=== PATIENT | male | born 1990 | race Caucasian/White ===

== ENCOUNTER 2016-09-16 09:51 | Emergency (ER) | payer OTHER ==
[~2016-09-16] VITALS: Ht 185.4 cm; Wt 74.8 kg
--- NOTE | 2016-09-16 11:39 | ED NEURO DEFICIT/STROKE ---
History of Present Illness General Chief Complaint: General Adult Stated Complaint: NAUSEA,BRUNER,PER PT"HYPERTENSION" Source: patient Exam Limitations: no limitations Vital Signs & Intake/Output Vital Signs & Intake/Output Vital Signs Date Time Temp Pulse Resp B/P Pulse O2 O2 Flow FiO2 Ox Delivery Rate 09/16 1339 97.5 69 18 127/67 95 Room Air 09/16 1120 98.0 98 18 122/73 97 Room Air Room Air 09/16 0958 98.0 81 20 122/79 96 Room Air Allergies Coded Allergies: No Known Allergies (09/16/16) Reconcile Medications No Known Home Medications Triage Note: TRIAGE: PT TO ER WITH COWORKER C/C DIFFICULTY CONCENTRATING THIS MORNING, R PERIPHERAL VISION LOSS (NOW RETURNED), B/P WAS HIGH, HR WAS LOW AND THEN DEVELOPED HEADACHE. STATES HR AND B/P RETURNED TO NORMAL AFTER THAT. VSS AT TRIAGE. REPORTS H/A AND NAUSEA PERSISTS. Triage Nurses Notes Reviewed? yes HPI: This patient is a 26-year-old male past medical history including Marfan syndrome and migraine headaches who presented to the emergency department today for evaluation of multiple complaints. The patient reported that he was writing his chart this morning when he started to develop right sided peripheral vision loss and feeling as though he was going to pass out. His blood pressure was 141 /75 mmHg and his pulse was in the 40s. He was given some water and his pulse normalized. The patient reported that after that time he developed a left-sided occipital, pounding headache which he rated at its worst an 8 out of 10. He reported that is currently resolving. He had similar symptoms approximately 4 years ago when he had a migraine headache. The patient denied any current visual changes, dizziness, chest pain, palpitations, difficulty breathing, numbness or tingling in his extremities, jaw pain, arm pain, or any other associated symptoms. (IVIS GUADALUPE,BENJAMIN) Past History Travel History Traveled to [place] past 21 day No Medical History Any Pertinent Medical History? see below for history Neurological: NONE EENT: NONE Cardiovascular: AORTIC REGURGITATION, DILATED AORTA Respiratory: NONE Gastrointestinal: NONE Hepatic: NONE Renal: NONE Musculoskeletal: mARFAN SYNDROME Psychiatric: NONE Endocrine: NONE Blood Disorders: NONE Cancer(s): NONE [employer]CTOR [employer]ERS/Reproductive: NONE Surgical History Surgical History: non-contributory Psychosocial History What is your primary language [place] Citizen Tobacco Use: Never used ETOH Use: occasional use Illicit Drug Use: denies illicit drug use Family History Hx Contributory? No (BENJAMIN LANGSTON PA-C) Review of Systems Review of Systems Constitutional: Reports: no symptoms. EENTM: Reports: see HPI. Respiratory: Reports: no symptoms. Cardiovascular: Reports: no symptoms. GI: Reports: no symptoms. Genitourinary: Reports: no symptoms. Musculoskeletal: Reports: no symptoms. Skin: Reports: no symptoms. Neurological/Psychological: Reports: see HPI. All Other Systems: Reviewed and Negative (BENJAMIN LANGSTON PA-C) Physical Exam Physical Exam General Appearance: well developed/nourished, no apparent distress, alert, awake Cranial Nerves: normal hearing, normal speech, PERRL Comments: Well-developed well-nourished person in no acute distress HEENT: Normal EENT exam, head normocephalic/atraumatic, moist mucous membranes PERRLA bilaterally. EOMI bilaterally no nystagmus Neck: Supple, no lymphadenopathy Back: Normal gait Cardiovascular: Regular rate and rhythm with no murmurs, rubs, or gallops Respiratory: Chest nontender. No respiratory distress. Breath sounds clear to auscultation bilaterally with no wheezes, rales, rhonchi Abdomen: Soft, nontender and nondistended with normoactive bowel sounds Extremity: Normal and equal pulses. Capillary refill less than 2 seconds Neuro: Alert oriented x3, cranial nerves II through XII grossly intact. No aphasia. No facial droop. No unilateral weakness Skin: No appreciable rash on exposed skin, skin is warm and dry. Psych: Mood and affect is normal Core Measures CVA/TIA Diagnosis: No Severe Sepsis Present: No Septic Shock Present: No (BENJAMIN LANGSTON PA-C) Progress Differential Diagnosis: acute glaucoma, Deng's Palsy, drug intoxication, electrolyte imbalance, encephalitis, hypoglycemia, intracranial Hem., intracranial mass/tumor, meningitis, migraine BRUNER, seizure disorder, stroke, subarachnoid Hem., vertebrobasilar insuff., acs, pe, AORTIC ANEURYSM Plan of Care: Orders Procedure Date/time Status MISTAKE 09/16 1114 Active TROPONIN LEVEL 09/16 1114 Complete LIPASE 09/16 1114 Complete DIRECT BILIRUBIN 09/16 1114 Complete COMPREHENSIVE METABOLIC PANEL 09/16 1114 Complete CBC WITHOUT DIFFERENTIAL 09/16 1114 Complete AMYLASE 09/16 1114 Complete EKG 09/16 1114 Active Laboratory Tests 09/16/16 1137: Anion Gap 6, Estimated GFR > 60, BUN/Creatinine Ratio 17.5, Glucose 109 H, Calcium 9.7, Total Bilirubin 3.1 H, Direct Bilirubin 0.1, AST 21, ALT 36, Alkaline Phosphatase 36, Troponin I < 0.01, Total Protein 7.1, Albumin 4.4, Globulin 2.7, Albumin/Globulin Ratio 1.6, Amylase 35, Lipase 72, CBC w Diff NO MAN DIFF REQ, RBC 5.68, MCV 87.2, MCH 30.2, RDW 13.3, MPV 9.1, Gran % 86.4 H, Lymphocytes % 9.0 L, Monocytes % 4.5, Eosinophils % 0.1, Basophils % 0 L, Absolute Granulocytes 10.2 H, Absolute Lymphocytes 1.1 L, Absolute Monocytes 0.5, Absolute Eosinophils 0, Absolute Basophils 0, PUBS MCHC 34.7 Diagnostic Imaging: Viewed by Me: CT Scan. Discussed w/RAD: CT Scan. Radiology Impression: PATIENT: APRIL BEAR PRESENT AGE: 26 PATIENT ACCOUNT NO: [id number] : 89 LOCATION: [facility] ORDERING PHYSICIAN: BENJAMIN LANGSTON PA-C SERVICE DATE: 09/16/16 EXAM TYPE: CAT - CT HEAD WO IV CONTRAST EXAMINATION: CT HEAD WITHOUT CONTRAST CLINICAL INFORMATION: Right-sided peripheral visual loss and headache. COMPARISON: None TECHNIQUE: Contiguous axial imaging was performed from the skull base to vertex without intravenous administration of contrast. DLP: 601 mGy-cm FINDINGS: There is no evidence of acute intracranial hemorrhage or territorial infarction. No abnormal mass effect or midline shift is seen. Thao to white matter differentiation is well preserved. No extra-axial fluid collections are identified. The ventricles are normal in size. There is no abnormal attenuation within the brain parenchyma. The osseous structures and soft tissues are normal. The mastoid air cells and visualized portions of the paranasal sinuses are well aerated. IMPRESSION: No acute intracranial pathology. DICTATED BY: AZUL HODGE MD DATE/TIME DICTATED:09/16/161319 STORE OPERATIONS ASSOCIATE:CINDY DATE/TIME TRANSCRIBED:09/16/161319 CONFIDENTIAL, DO NOT COPY WITHOUT APPROPRIATE AUTHORIZATION. <Electronically signed in Other Vendor System> SIGNED BY: AZUL HODGE MD 09/16/161327, PATIENT: APRIL BEAR PRESENT AGE: 26 PATIENT ACCOUNT NO: [id number] : 89 LOCATION: [facility] ORDERING PHYSICIAN: BENJAMIN LANGSTON PA-C SERVICE DATE: 09/16/16 EXAM TYPE: CAT - CTA CHEST-AORTIC DISSECTION EXAMINATION: CTA OF THE CHEST WITHOUT AND WITH CONTRAST CLINICAL INFORMATION: History of Marfan syndrome. Presyncope and headache. Rule out aortic rupture/dissection. COMPARISON: None TECHNIQUE: CT angiogram of the chest was performed without and with contrast. 94 mL Optiray 320 administered without complication. Maximum intensity projection imaging was produced and reviewed. FINDINGS: Bolus quality is suboptimal due to Valsalva. The thoracic aorta is normal in caliber. On the noncontrast imaging there is no evidence of intramural hematoma. On the postcontrast imaging there is no dissection flap or evidence of rupture. No pericardial effusion. No lymphadenopathy. The lungs are clear. No pleural effusion. Mild pectus excavatum. The upper abdomen appears normal. No suspicious osseous abnormalities. IMPRESSION: Mildly limited CT angiogram due to bolus quality secondary to Valsalva. Negative for thoracic aortic aneurysm/dissection. DICTATED BY: KATHY BURKS MD DATE/TIME DICTATED:09/16/161317 STORE OPERATIONS ASSOCIATE:CINDY DATE/TIME TRANSCRIBED:09/16/161317 CONFIDENTIAL, DO NOT COPY WITHOUT APPROPRIATE AUTHORIZATION. <Electronically signed in Other Vendor System> SIGNED BY: KATHY BURKS MD 09/16/161326 Initial ED EKG: normal axis, normal intervals, normal sinus rhythm, EARLY REPOLARIZATION Comments: 09/16/2016 12:37:42 PM: I discussed this patient with Dr. Rowe. Recommending getting a CT angiogram of the chest rule out aortic ruptured this patient's past medical history of Marfan syndrome with an enlarged aorta. Also recommended getting a CT of the head without contrast to rule out any intracranial pathology with this patient's presenting symptom of right-sided peripheral vision loss. Discussed this with the patient and his family who are in agreement with the plan. 09/16/2016 12:52:31 PM: Dr. Rowe is currently at the patient's bedside evaluation. This patient is not orthostatic. (IVIS GUADALUPE,BENJAMIN) Departure Departure Disposition: HOME OR SELF CARE Condition: Stable Clinical Impression Primary Impression: Migraine Qualifiers: Migraine type: unspecified Status migrainosus presence: without status migrainosus Intractability: not intractable Qualified Code: G43.909 - Migraine, unspecified, not intractable, without status migrainosus Referrals: PATIENT HAS NO PRIMARY CARE DR (PCP/Family) Additional Instructions: Please follow-up with your previously scheduled appointment for echocardiogram. Rest. Return for any worsening symptoms or concerns. Departure Forms: Customer Survey General Discharge Information Prescriptions: Current Visit Scripts No Known Home Medications (BENJAMIN LANGSTON PA-C) PA/TIMBER ROBBER Co-Sign Statement Statement: ED Attending supervision documentation- [] I saw and evaluated the patient. I have also reviewed all the pertinent lab results and diagnostic results. I agree with the findings and the plan of care as documented in the PA's/TIMBER ROBBER's documentation. [X] I have reviewed the ED Record and agree with the PA's/TIMBER ROBBER's documentation. [] Additions or exceptions (if any) to the PAs/TIMBER ROBBER's note and plan are summarized below: [] (ADITI ROWE DO
[2016-09-16 11:44] LABS: ABSOLUTE BASOPHIL COUNT 0 /CUMM (0.0-0.2); ABSOLUTE EOSINOPHIL COUNT 0 /CUMM (0.0-0.7); ABSOLUTE GRANULOCYTE CT 10.2 /CUMM (1.4-6.5); ABSOLUTE LYMPH COUNT 1.1 /CUMM (1.2-3.4); ABSOLUTE MONOCYTE COUNT 0.5 /CUMM (0.10-0.60); BASOPHIL % 0 % (0.0-2.0); EOSINOPHIL % 0.1 % (0-5); HEMATOCRIT 49.5 % (42-52); MEAN CORPUSCULAR HGB 30.2 PG (27.0-31.0); MEAN CORPUSCULAR HGB CONC 34.7 G/DL (33.0-37.0); MEAN CORPUSCULAR VOLUME 87.2 FL (80.0-94.0); MEAN PLATELET VOLUME 9.1 FL (7.4-10.4); PLATELET COUNT 156 /CUMM (130-400); RBC DISTRIBUTION WIDTH 13.3 % (11.5-14.5); RED BLOOD CELL CT 5.68 /CUMM (4.70-6.10); WHITE BLOOD CELL COUNT 11.8 /CUMM (4.8-10.8)
[2016-09-16 12:02] LABS: GRANULOCYTE % 86.4 % (42.2-75.2)
--- NOTE | 2016-09-16 13:27 | CT SCAN REPORT ---
EXAMINATION: CTA OF THE CHEST WITHOUT AND WITH CONTRAST CLINICAL INFORMATION: History of Marfan syndrome. Presyncope and headache. Rule out aortic rupture/dissection. COMPARISON: None TECHNIQUE: CT angiogram of the chest was performed without and with contrast. 94 mL Optiray 320 administered without complication. Maximum intensity projection imaging was produced and reviewed. FINDINGS: Bolus quality is suboptimal due to Valsalva. The thoracic aorta is normal in caliber. On the noncontrast imaging there is no evidence of intramural hematoma. On the postcontrast imaging there is no dissection flap or evidence of rupture. No pericardial effusion. No lymphadenopathy. The lungs are clear. No pleural effusion. Mild pectus excavatum. The upper abdomen appears normal. No suspicious osseous abnormalities. IMPRESSION: Mildly limited CT angiogram due to bolus quality secondary to Valsalva. Negative for thoracic aortic aneurysm/dissection.
--- NOTE | 2016-09-16 13:28 | CT SCAN REPORT ---
EXAMINATION: CT HEAD WITHOUT CONTRAST CLINICAL INFORMATION: Right-sided peripheral visual loss and headache. COMPARISON: None TECHNIQUE: Contiguous axial imaging was performed from the skull base to vertex without intravenous administration of contrast. DLP: 601 mGy-cm FINDINGS: There is no evidence of acute intracranial hemorrhage or territorial infarction. No abnormal mass effect or midline shift is seen. Thao to white matter differentiation is well preserved. No extra-axial fluid collections are identified. The ventricles are normal in size. There is no abnormal attenuation within the brain parenchyma. The osseous structures and soft tissues are normal. The mastoid air cells and visualized portions of the paranasal sinuses are well aerated. IMPRESSION: No acute intracranial pathology.
[2016-09-16 13:39] VITALS: BP 127/67
== END 2016-09-16 13:45 ==
LOC: ERH 09:51
PROVIDERS: Physician Assistant
DX: G43.909 Migraine, unspecified, not intractable, without status migrainosus (principal); R11.0 Nausea; Q87.40 Marfan syndrome, unspecified
CPT/HCPCS: 93005; 93010; 96374; J1885